=== PATIENT | female | born 1995 | race Two or more races ===

== ENCOUNTER 2025-07-12 12:20 | Outpatient (AMB) | payer OTHER, SELFPAY ==
--- NOTE | 2025-07-12 12:35 | A.OFFPC_ITS ---
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: Yes Surgical Instrument Maker Language: Swiss Allergies No Known Allergies Allergy (Verified 07/12/25 12:40) Medication List - Last Reconciled 07/12/25 by Juana Orellana MD No Known Home Meds Tobacco use date assessed: 07/12/25 Dental Screening Dental Screen Date: 07/12/25 Did you have a dental visit in the last 12 months?: Yes Did you have a dental problem in the last 6 months where you did not have access to dental care?: No Was dental information given to patient?: Patient has dentist HPI HPI Comments History of Present Illness Details 30 yo F patient with HTN and obesity pre senting to establish care. She expressed interest in weight management medications. She reports snoring at night noticed by her . She also endorses right heel pain that she thinks is related to her weight. She did not try other type of shoes to see if this would help with her symptoms. The patient has elevated BP in clinic today. She reports feeling nervous when seeing a doctor. I explained to her that white coat HTN would cause mild elevation in BP but not as high as her current BP of 180/100. The patient has an OBgyn and her most recent pap smear was one month ago. [facility] Social History Alcohol intake: never Patient Tobacco Use Status: Never used Tobacco e-Cigarette/Vaping Use: Never Used Current occupational status: unemployed Cognitive needs: No Hearing needs: No Vision needs: Yes Questionnaire Thrive Questionnaire Date Thrive assessed: 07/11/25 I am a: Patient What is your living situation today?: I have a steady place to live Within the past 12 months, did the food you bought not last and you didn't have the money to get more?: Never true Within the past 12 months, did you worry whether your food would run out before you got money to buy more?: Never true Do you have trouble paying for medicines?: No Do you have trouble getting transportation to medical appointments?: No Do you have trouble paying your heating and electricity bill?: No Do you have trouble taking care of your child, family member or friend?: No Do you have trouble with day-to-day activities such as bathing, preparing meals, shopping, managing finances, etc.?: No Are you currently unemployed and looking for a job?: Yes Are you interested in more education?: I choose not to answer this question Please select the resources that you would like help with: Job search/training Currently or been in a relationship where the following occur: No concerns reported THRIVE Score: 0 AUDIT C Alcohol Use Questionnaire (AUDIT-C) 1. How often do you have a drink containing alcohol?: Never 3. How often do you have six or more drinks on one occasion?: Never Total Score: 0 ELBA-7 AMB Questionnaire ELBA-7 Feeling nervous, anxious, or on edge: 0 = Not at all Not being able to stop or control worryin = Not at all Worrying too much about different things: 0 = Not at all Trouble relaxin = Not at all Being so restless that it is hard to sit still: 0 = Not at all Becoming easily annoyed or irritable: 0 = Not at all Feeling afraid as if something awful might happen: 1 = Several days Total ELBA-7 score (0-4 normal; 5-9 mild; 10-14 moderate; 15-21 severe): 1 Source: Developed by Drs. Alec Roman, Raysa Ford, Son Francois and colleagues, with an educational ping from [employer]. Review of Systems Const Details: As per HPI. Physical exam (Primary Care) Vital Signs: Last Vital Signs Temp 97.5 F 07/12/25 12:39 Pulse 104 H 07/12/25 12:39 Resp 18 07/12/25 12:39 BP 180/100 H 07/12/25 12:39 Pulse Ox 99 07/12/25 12:39 Oxygen Delivery Method Room Air 07/12/25 12:39 BMI result Body Mass Index 46.5 Tobacco/Smoking Status: Tobacco use Status Tobacco use date assessed 07/12/25 07/12/25 12:44 Patient Tobacco Use Status Never used Tobacco 07/12/25 12:44 e-Cigarette/Vaping Use Never Used 07/12/25 12:44 Thrive Assessment: Date of Thrive Assessment Date Thrive assessed 07/11/25 07/12/25 12:44 Currently or been in a relationship where the following occur: No concerns reported Const Other: Pertinent findings are in BOLD GENERAL APPEARANCE NAD, activity normal for age, well developed/ well nourished, no cyanosis, pallor, or diaphoresis. EYES lids/conjunctiva normal. EARS/NOSE/THROAT Mucous membranes moist, nares normal, lips/teeth normal uvula midline without oral pharyngeal erythema, exudate or swelling TMs normal bilaterally. No lymphangitis/lymphedema. HEAD/NECK normocephalic atraumatic, no facial trauma, neck is supple. RESPIRATORY respiratory effort normal, speaks in full sentences, no tripod position, no accessory muscle use. Lungs clear to auscultation without rhonchi, wheezes, rales CARDIAC Regular rate and rhythm, no edema. ABDOMINAL Soft, ND/NT. No evidence of fluid wave. No pulsatile masses on exam, rebound tenderness, Alejandre sign or pain over Mcburney's point. MUSCLES/EXTREMITIES No abnormal range of motion, no swelling. SKIN Warm, pink and dry. No rashes, dermatoses, petechiae or lesions. NEUROLOGICAL Speech is clear and appropriate. Normal level of consciousness. Gait and coordination are normal. 5/5 strength in all extremities. PSYCH Normal mood and affect. Judgement/competence is appropriate Office Procedures Flu Questionnaire Does the patient have a severe egg allergy?: No Does the patient have severe life threatening allergies?: No Does the patient have a fever or illness today?: No Has the patient ever had Guillain-[place] Syndrome?: No Has the patient ever had any past reaction to a flu shot?: No Immunizations Fluarix [id number] (PF) 45 mcg (15 mcg x 3)/0.5 mL IM syringe Performing Provider: Juana Orellana MD [facility] Administered by: Elisa Carvajal CMA on 07/12/25 13:11 Dose Route Admin Location Dispensed Lot Number Expiration Date [facility] Director Of Cardiac Cath Lab 0.5 mL IM Right Deltoid 0.5 mL [id number] 03/05/26 85619-669-74 [employer] VIS Given Date VIS Provided VIS Publication Date 07/12/25 Single Vaccine 24 Eligibility Eligibility Date Funding Source Not [facility] Eligible 07/12/25 Private Coding Level of Care Code New Pt Level 4 (42837) New Pt Prev Care 18-39yr(49579 Diagnoses Healthcare maintenance Z00.00 Class 3 severe obesity due to excess calories without serious comorbidity with body mass index (BMI) of 45.0 to 49.9 in adult E66.01; Z68.42; Z68.42 Obesity type: due to excess calories Obesity classification: adult class 3 (BMI >= 40) Serious obesity comorbidity presence: without serious comorbidity Body mass index: BMI 45.0-49.9 White coat syndrome with diagnosis of hypertension I10 Primary hypertension I10 Hypertension type: primary hypertension Snoring R06.83 Time Spent (min) 30 Assessment & Plan Assessment & Plan (1) Healthcare maintenance: Code(s): Z00.00 - Encounter for general adult medical examination without abnormal findings Category: Medical Plan: CBC, CMP, Lipid panel, A1C, TSH w T4, vit D. Ordered today. Shingles 2 doses when >50 yo. At 50. COVID: two doses. Completed in the past. Tdap: done 2018 due in 2027. Pneumococcal: >50 yo. 18-49 with CKD, lung disease, weakened immune system, Heart disease, DM, cochlear implant. Not indicated. Flu vaccine: Today. Colonoscopy: 45-75. AAA: 65 -75. [address]. CT lun - 80. Not indicated. HPV: Follows with service consultant with her most recent pap smear a month ago. Malinda Weaver MD. HIV: ordered today. HCV: ordered today. Dexa: Not indicated. Mammogram: Not indicated. (2) Obesity: Code(s): E66.9 - Obesity, unspecified Category: Medical Qualifiers: Obesity type: due to excess calories Obesity classification: adult class 3 (BMI >= 40) Serious obesity comorbidity presence: without serious comorbidity Body mass index: BMI 45.0-49.9 Qualified Code(s): E66.01 - Morbid (severe) obesity due to excess calories; Z68.42 - Body mass index [BMI] 45.0- 49.9, adult; Z68.42 - Body mass index [BMI] 45.0-49.9, adult Plan: Weight management referral. (3) White coat syndrome with diagnosis of hypertension: Code(s): I10 - Essential (primary) hypertension Category: Medical Plan: The patient reports nervousness when seeing a doctor. Her BP in clinic today was 180/100. I explained to the patient that her elevated BP can be partially explained by white coat syndrome but not fully and that we need to start her on BP medication. Patient was agreable. (4) HTN (hypertension): Code(s): I10 - Essential (primary) hypertension Category: Medical Qualifiers: Hypertension type: primary hypertension Qualified Code(s): I10 - Essential (primary) hypertension Plan: Amlodipine 10 mg Daily. (5) Snoring: Code(s): R06.83 - Snoring Category: Medical Plan: Sleep medicine referral. Plan Plan for labs, sleep medicine referral, weight management referral. Flu vaccine was administered today. Orders: Orders Comprehensive Met. Panel Today Z00.00 - Encounter for general adult medical examination without abnormal findings Vitamin D 25-OH Total Today Z00.00 - Encounter for general adult medical examination without abnormal findings Hepatitis C Antibody Reflex Today Z00.00 - Encounter for general adult medical examination without abnormal findings Complete Blood Count no Diff Today Z00.00 - Encounter for general adult medical examination without abnormal findings Hemoglobin A1c Today Z00.00 - Encounter for general adult medical examination without abnormal findings Lipid Panel Today Z00.00 - Encounter for general adult medical examination without abnormal findings TSH reflex Free T4 Today Z00.00 - Encounter for general adult medical examination without abnormal findings HIV Ab/Ag Today Z00.00 - Encounter for general adult medical examination without abnormal findings Influenza [id number] Immunization Today Z23 - Encounter for immunization Referrals Sleep Medicine Referral R06.83 - Snoring Medical Weight Management Referral E66.01 - Morbid (severe) obesity due to excess calories, Z68.42 - Body mass index [BMI] 45.0-49.9, adult Medications: New amlodipine 10 mg PO DAILY 90 tabs 3RF
[2025-07-12 12:39] VITALS: BP 180/100; PULSE 104; RESP 18; TEMP 36.4; O2SAT 99; BMI 46.5
== END 2025-07-12 13:34 | disposition home or self-care (01) ==
LOC: HO.HMCH 12:20
PROVIDERS: Visit Provider Internal Medicine
DX: Z00.00 Encounter for general adult medical examination without abnormal findings (principal); I10 Essential (primary) hypertension; E66.01 Morbid (severe) obesity due to excess calories; Z68.42 Body mass index [BMI] 45.0-49.9, adult; R06.83 Snoring; Z23 Encounter for immunization

== ENCOUNTER → 2025-07-12 12:20 | Outpatient (BNVA) | payer OTHER, SELFPAY | PROVIDERS: Visit Provider Internal Medicine | DX: Z00.00 Encounter for general adult medical examination without abnormal findings (principal); I10 Essential (primary) hypertension; E66.01 Morbid (severe) obesity due to excess calories; Z68.42 Body mass index [BMI] 45.0-49.9, adult; R06.83 Snoring; Z23 Encounter for immunization | CPT/HCPCS: 90471; 90656; 99202; 99385 ==

== ENCOUNTER 2025-07-19 10:42 | Outpatient (REF) | payer OTHER, SELFPAY ==
[2025-07-19 11:34] LABS: Hematocrit 41.6 % (37.0-47.0); Hemoglobin 13.2 g/dl (12.0-16.0); Mean Corpuscular HGB Conc 31.7 g/dl (31.0-35.0); Mean Corpuscular Hemoglobin 26.7 pg (27.0-33.0); Mean Corpuscular Volume 84.0 fL (80.0-98.0); NRBC Abs Auto 0.000 X10*3/uL (0.0-0.012); NRBC Pct Auto 0.0 /100WBC (0.0-0.2); Platelet Count 321 X10*3/uL (160-400); Red Blood Count 4.95 X10*6/uL (4.20-5.50); White Blood Count 6.0 X10*3/uL (4.8-10.8)
[2025-07-19 12:30] LABS: Alanine Aminotransferase 32 U/L (0-31); Albumin Level 4.4 g/dL (3.5-5.0); Alkaline Phosphatase 55 U/L (39-117); Anion Gap 12 (12-20); Aspartate Amino Transferase 43 U/L (5-31); Blood Urea Nitrogen 10 mg/dL (9-16); Calcium 9.3 mg/dL (8.4-10.2); Carbon Dioxide 27 mmol/L (22-29); Chloride 105 mmol/L (96-108); Cholesterol 229 mg/dL (<200); Estimated Glomerular Filt Rate > 60; HDL Cholesterol 44 mg/dL (>40); Potassium 4.0 mmol/L (3.3-5.1); Sodium 140 mmol/L (135-145); Total Protein 7.9 g/dL (6.5-8.0); Triglycerides 125 mg/dL (<150)
[2025-07-19 12:41] LABS: HIV Num 1 0.06 S/CO (0.00-0.99); ~HepC Num1 0.06 S/CO (0.00-0.79); ~Hepatitis C Antibody Nonreactive (Nonreactive)
--- OUTSIDE RECORDS SUMMARY | 2025-07-19 13:13 | XMS_ITS | Clinical Summary ---
Author Organization [facility] Address [address] [place] [address] Care Team Providers Care Bioinformatics Analyst Name Role Phone Issa Jean Baptiste NP Primary Care Provider [phone] Source Comments PLEASE NOTE, if this patient is a minor, it may be UNLAWFUL to discuss sensitive information that is contained in these records (such as FAMILY PLANNING, MENTAL HEALTH or SUBSTANCE ABUSE) with the minor patient's parent or other person without the patient's specific authorization.[facility] Allergies Active Allergy Reactions Criticality Noted Date Comments Aspirin Medications [id number] per tabletIndication s:, unspecified gestational age Take 1 Tab by mouth once daily 30 Tab 3 10/28/2017 Active metoclopramide HCl (REGLAN) 5 mg tabletIndication s:, unspecified gestational age Take 1 Tab by mouth 4 (four) times daily before meals and nightly 90 Tab 1 10/28/2017 Active Active Problems Problem Noted Date Diagnosed Date Encounter for gynecological examination 02/09/20 17 Overview (02/08/2017): Pap smear negative in 01/2017 History of chest x-ray 02/21/2015 Overview (02/21/2015): CXR normal 2014 [facility] Immunizations Immunization Administration Dates Next Due Flu, Preservative Free 08/24/2018,10/28/2017 TDAP 05/04/2018 Family History Medical History Relation Name Comments Heart Problems Father pacemaker Hypertension Father Hypertension Mother Relation Name Status Comments Brother 1 brother Father Alive Mother Alive Sister 1 sister Social History Tobacco Use Types Packs/Day Years Used Date Smoking Tobacco: Never Smokeless Tobacco: Never Alcohol Use Standard Drinks/Week Comments No 0 (1 standard drink = 0.6 oz pur e alcohol) Social Connections Answer Date Recorded Social Connections and Isolation 0 04/30/2019 Financial Resource Strain Answer Date R ecorded Financial Resource Strain 0 2018 Stress Answer Date Recorded Stress 0 04/30/2019 Physical Activity Answer Date Recorded Physical Activity 0 04/30/2019 Food Insecurity Answer Date Recorded Food 0 04/30/2019 Transportation Needs Answer Date Record ed Transportation 0 04/30/2019 Housing Stability Answer Date Recorded Housing 0 04/30/2019 Safety and Environment Answer Date Lopez rded Safety 0 04/30/2019 Utilities Answer Date Recorded Utilities 0 04/30/2019 Employment Answer Date Recorded Employment 0 04/30/2019 Comments No Sex and Gender Information Value Date Recorded Sex Assigned at Female 07/22/2017 10:55 AM PST Legal Sex Female 7:00 AM PDT Gender Identity Female 07/22/2017 10:55 AM PST Sexual Orientation Straight 07/22/2017 10 :55 AM PST Occupation Industry Job Start Date Job End Date Unemployed Not on file Not on file Not on file Last Filed Vital Signs Vital Sign Reading Time Taken Comments Blood Pressure 122/62 08/24/2018 8:55 AM EST Pulse 61 08/24/2018 8:55 AM EST Temperature 36.7 C (98.1 F) 08/24/2018 8:55 AM EST Respiratory Rate 14 08/24/2018 8:55 AM EST Oxygen Saturation 100% 12/07/2017 4:32 PM EDT Inhaled Oxygen Concentration - - Weight 106.1 kg (234 lb) 08/24/2018 8:55 AM EST Height 167.6 cm (5' 6 ) 08/24/2018 8:55 AM EST Body Mass Index 37.77 08/24/2018 8:55 AM EST Plan of Treatment Not on file Insurance [place] MED[place] [facility] [employer] NET [place] [address] [address] PLAN Member Subscriber Plan / Payer (Ef fective 2017-Present) Name:Vanda Gresham Relation to Subscriber:Self Name:Vanda Gresham Payer ID:[id number] Group ID:Not on file Type:Medicaid Address: [address] [address] [place] [address] [facility] Care Teams Bioinformatics Analyst Relationship Specialty Start Date End Date Issa Jean Baptiste NP [address] [place] [address] PCP - General 07/14/18
== END 2025-07-19 10:43 | disposition home or self-care (01) ==
LOC: HO.LAB 10:42
PROVIDERS: PCP Internal Medicine; Visit Provider Internal Medicine
DX: Z00.00 Encounter for general adult medical examination without abnormal findings (principal); Z11.59 Encounter for screening for other viral diseases; Z11.4 Encounter for screening for human immunodeficiency virus [HIV]; Z20.6 Contact with and (suspected) exposure to human immunodeficiency virus [HIV]
CPT/HCPCS: 36415; 80053; 80061; 82306; 83036; 84443; 85027; 86803; 87389